=== PATIENT | female | born 1975 | race Caucasian/White ===

== ENCOUNTER 2016-11-18 22:30 | Emergency (ER) | payer OTHER ==
[~2016-11-18] VITALS: Ht 157.5 cm; Wt 104.1 kg
[~2016-11-18 22:30] MED LIST: RIZA10TA18 PO
[2016-11-18 22:34] VITALS: TEMP 37.2; Ht 157.5 cm; Wt 104.1 kg
[2016-11-18] MEDS ORDERED: OXYCODONE HCL IR 5 MG TAB (IMMEDIATE RELEASE) PO STA (22:38)
[2016-11-18] MEDS ORDERED: ASPI-390 PO (22:45)
--- NOTE | 2016-11-18 23:00 | DIAGNOSTIC IMAGING REPORT ---
LEFT SHOULDER 3 VIEWS CLINICAL HISTORY: Fall with left shoulder pain. FINDINGS: 3 portable views of left shoulder are obtained. No prior studies are available for comparison at the time of dictation. The skeletal structures are well mineralized. There is a nondistracted fracture of the left humeral head and neck. A small posteriorly distracted fragment is seen arising from the greater tuberosity. The glenohumeral and acromioclavicular joints appear maintained. Mild overlying soft tissue edema is noted. The visualized left lung parenchyma appears clear. IMPRESSION: Nondistracted fracture of the left humeral head and neck with a small distracted fragment. Electronically signed by: Ab Butler M.D. 11/18/2016 10:59 PM Dictated Date/Time: 11/18/2016 10:58 PM
[2016-11-18 23:04] VITALS: BP 191/114; PULSE 98; O2SAT 95
--- NOTE | 2016-11-18 23:10 | EMERGENCY ROOM VISIT NOTE ---
ED Visit Note First contact with patient: 22:34 CHIEF COMPLAINT: Shoulder pain HISTORY OF PRESENT ILLNESS: This 41-year-old patient presents to the emergency department with friends complaining of pain in the left shoulder falling on it just prior to arrival on the ice. There is limitation of motion of the arm because of the pain. The pain is moderate, constant and increases with motion of the hand and arm. The patient states the pain is throbbing and 6/10. The patient has taken nothing for relief of the pain. No previous significant previous shoulder disease or injury. No numbness or tingling. no neck no back pain. No chest pain or shortness of breath. No abdominal pain or nausea/ vomiting. No cough. REVIEW OF SYSTEMS: A 6 system review of systems was performed with positives and pertinent negatives in the HPI. ALLERGIES: none MEDICATIONS: Maxalt PMH: Migraines SOCIAL HISTORY: Drug use PHYSICAL EXAM: Vital Signs: Reviewed nurse's notes, vital signs hypertensive. GENERAL: Pleasant female who appears in pain, in no acute distress, but appears to be in pain, well-developed, well-nourished. MUSCULOSKELETAL: There is no deformity in the contour of the left shoulder and there are no lesly deformities noted. There is no sulcus sign. There is tenderness over the humeral head. The patient's range of motion is noted secondary to pain. Supraspinatus strength 4/5. There is no clavicle tenderness. No tenderness of the humerus, elbow, wrist, or hand. Business Services Manager strength 5/5. Radial pulse 2+. NECK: no tenderness to palpation over the cervical spine. HEART: Regular rate and rhythm without murmurs gallops or rubs. LUNGS: Clear to auscultation bilaterally without wheezes, rales or rhonchi. No accessory muscle use. No retractions. NEURO: The patient is alert and oriented to person, place, and time. Normal sensation to light and sharp touch. Capillary refill less than 2 seconds. EMERGENCY DEPARTMENT COURSE: I examined the patient. Patient was given an ice pack and OxyIR. An X-ray of the left shoulder was reviewed by myself and LEFT SHOULDER 3 VIEWS CLINICAL HISTORY: Fall with left shoulder pain. FINDINGS: 3 portable views of left shoulder are obtained. No prior studies are available for comparison at the time of dictation. The skeletal structures are well mineralized. There is a nondistracted fracture of the left humeral head and neck. A small posteriorly distracted fragment is seen arising from the greater tuberosity. The glenohumeral and acromioclavicular joints appear maintained. Mild overlying soft tissue edema is noted. The visualized left lung parenchyma appears clear. IMPRESSION: Nondistracted fracture of the left humeral head and neck with a small distracted fragment. Electronically signed by: Ab Butler M.D. Patient is placed in a sling and neurovascular status is rechecked after placement and is intact. She is advised follow-up with orthopedics for definitive care for her humeral head fracture. She is advised to remove her arm several times throughout the day and do range of motion exercises is not to develop a frozen shoulder. She is advised follow-up family medicine for her elevated blood pressure today this could be secondary to her pain. She is advised to return to the ER immediately for severe pain, numbness, tingling, worsening signs or symptoms or as needed. Patient was neurovascular and neurologically intact. No other injuries are noted. She is discharged home in stable condition with her friends. DIAGNOSIS: Left Humeral head fracture, elevated blood pressure DISCHARGE INSTRUCTIONS & TREATMENT: Your blood pressure is high today. Follow up with your family care Dr. for this. DO NOT drive, drink alcohol, operate machinery, or perform dangerous activities today. You were given medications in the ER that can affect your ability to safely function or operate a vehicle. Oxycodone (OxyIR) 5mg: Take 1-2 pills every four hours for breakthrough pain. Avoid alcohol, operating machinery or dangerous equipment, working on ladders or roofs, DRIVING, or situations where being under the influence may be dangerous. It is recommended to use an famy-ltj-oyyeoww stool softener such as Colace, 100mg twice daily while taking this medication to avoid constipation. Ibuprofen(Motrin, Advil) may be used for fever or pain. Use 600mg every six hours as needed. Take with food. Avoid using more than 2400mg in a 24 hour period. Do not use 2400mg per day for more than three consecutive days without physician direction. Prolonged inappropriate use can lead to stomach upset or ulcers. This medication can be taken if you need to drive, work, or perform activities which may be dangerous when taking narcotic pain medication. (AND/OR) Acetaminophen(Tylenol) may be used for fever or pain. Use 1000mg every six hours as needed. Avoid using more than 3000mg in a 24 hour period. This medication can be taken if you need to drive, work, or perform activities which may be dangerous when taking narcotic pain medication. Ice compresses for 20 minutes at a time four times daily for 2-3 days. Use the sling as instructed. Remove your arm from the sling 4-6 times a day and move all the joints around to keep them loose. Rest and elevate your injury. Continue current medications. Return to the ER immediately for any numbness, tingling, severe pain, extreme swelling in the extremity or as needed. Call Orthopedics tomorrow to arrange follow up for your injury. Current/Historical Medications Scheduled PRN [id number]-[id number] (Excedrin Migraine), 1 TAB PO BID PRN for Migraine Allergies Coded Allergies: No Known Allergies (Unverified , 05/02/14) Vital Signs Date Time Temp Pulse Resp B/P Pulse Ox O2 Delivery O2 Flow Rate FiO2 11/18/16 23:04 98 20 191/114 95 Room Air 11/18/16 22:34 37.2 109 16 211/121 95 Room Air Medications Administered Medications (Trade) Dose Ordered Sig/Tony Route Start Time Stop Time Status Last Admin Dose Admin Oxycodone HCl (Roxicodone Immediate Rel Tab) 5 mg NOW STAT PO 11/18/16 22:38 11/18/16 22:40 DC 11/18/16 22:44 5 MG Departure Information Referrals Montana Swartz M.D. (PCP) Patient Instructions My [facility]
[2016-11-18] MEDS ORDERED: OXYCODONE IR HOME PACK PO ONE (23:15)
[2016-11-18] MEDS ORDERED: OXYC1TAB3 PO (23:17)
== END 2016-11-18 23:31 | disposition home or self-care (01) ==
LOC: C.EDB 22:31 → C.EDA 23:31
DX: S42.202A Unspecified fracture of upper end of left humerus, initial encounter for closed fracture (principal); W19.XXXA Unspecified fall, initial encounter; R03.0 Elevated blood-pressure reading, without diagnosis of hypertension; Z79.899 Other long term (current) drug therapy

== ENCOUNTER → 2016-11-19 | Outpatient (CLI) | payer OTHER ==
[~2016-11-19] MED LIST changes: +ASPI-390 PO; +OXYC1TAB3 PO; -RIZA10TA18 PO
[2016-11-19 17:50] LABS: MEAN PLATELET VOLUME 9.7 fL (7.4-10.4); PLATELET COUNT 352 K/uL (130-400)
[2016-11-19 17:57] LABS: ALT/SGPT 21 U/L (12-78); AST/SGOT 10 U/L (15-37); BLOOD UREA NITROGEN 13 mg/dl (7-18); BUN/CREATININE RATIO 14.7 (10-20); CALCIUM 9.3 mg/dl (8.5-10.1); CARBON DIOXIDE 24 mmol/L (21-32); CHLORIDE 109 mmol/L (98-107); GLUCOSE 106 mg/dl (70-99); POTASSIUM 3.4 mmol/L (3.5-5.1); SODIUM 142 mmol/L (136-145)
[2016-11-19 18:21] LABS: ALB/GLOB RATIO 1.2 (0.9-2); ALKALINE PHOSPHATASE 65 U/L (45-117)
[2016-11-19 18:23] LABS: URINE APPEARANCE CLOUDY (CLEAR); URINE BILIRUBIN NEG (NEG); URINE COLOR YELLOW; URINE EPITHELIAL CELL AUTO >30 /lpf (0-5); URINE NITRITE NEG (NEG); UROBILINOGEN NEG (NEG); ZZUR CULT IF INDIC CLEAN CATCH YES
[2016-11-19 18:29] LABS: MANUAL MICROSCOPIC REQUIRED? NO; REVIEW REQ? YES
[2016-11-19 18:45] LABS: URINE MUCUS PRESENT (NONE PRSENT)
[2016-11-19 19:09] LABS: BASO % 0.2 %; BASO ABS # 0.02 K/uL (0-0.2); COMPLETE YES; EOS % 1.5 %; HEMATOCRIT 41.2 % (37-47); IG% 0.4 %; LYMPH % 16.9 %; LYMPH ABS # 1.97 K/uL (1.2-3.4); MEAN CELL VOLUME 89.8 fL (80-100); MEAN CORPUSCULAR HEMOGLOBIN 29.6 pg (25-34); MONO % 7.7 %; NEUT % 73.3 %; RED BLOOD COUNT 4.59 M/uL (4.2-5.4); WHITE BLOOD COUNT 11.68 K/uL (4.8-10.8)
== END | disposition home or self-care (01) ==
LOC: C.LABBFT 10:23
PROVIDERS: ATTEND Internal Medicine
DX: R03.0 Elevated blood-pressure reading, without diagnosis of hypertension (principal)

== ENCOUNTER → 2016-11-27 | Outpatient (CLI) | payer OTHER ==
[2016-11-27 12:46] LABS: BLOOD UREA NITROGEN 21 mg/dl (7-18); BUN/CREATININE RATIO 22.1 (10-20); CALCIUM 9.5 mg/dl (8.5-10.1); CARBON DIOXIDE 24 mmol/L (21-32); CHLORIDE 109 mmol/L (98-107); CREATININE 0.95 mg/dl (0.60-1.20); GLUCOSE 101 mg/dl (70-99); POTASSIUM 3.8 mmol/L (3.5-5.1); SODIUM 141 mmol/L (136-145)
[2016-11-27 12:51] LABS: BASO % 0.4 %; BASO ABS # 0.02 K/uL (0-0.2); COMPLETE YES; EOS % 2.3 %; HEMATOCRIT 40.2 % (37-47); IG% 0.4 %; LYMPH % 32.2 %; LYMPH ABS # 1.82 K/uL (1.2-3.4); MEAN CELL VOLUME 88.9 fL (80-100); MEAN CORPUSCULAR HEMOGLOBIN 29.4 pg (25-34); MEAN CORPUSCULAR HGB CONC 33.1 g/dl (32-36); MEAN PLATELET VOLUME 9.7 fL (7.4-10.4); NEUT % 56.7 %; PLATELET COUNT 401 K/uL (130-400); RED BLOOD COUNT 4.52 M/uL (4.2-5.4); WHITE BLOOD COUNT 5.65 K/uL (4.8-10.8)
== END | disposition home or self-care (01) ==
LOC: C.LABBFT 10:04
PROVIDERS: ATTEND Physician Assistant Medical
DX: I10 Essential (primary) hypertension (principal)

== ENCOUNTER → 2016-12-02 | Outpatient (CLI) | payer OTHER ==
[2016-12-02 13:14] LABS: CHOLESTEROL/HDL RATIO 3.8
[2016-12-02 13:37] LABS: ESTIMATED AVERAGE GLUCOSE 120 mg/dl; HA1C FLAG Normal (Normal)
== END | disposition home or self-care (01) ==
LOC: C.LABBFT 10:27
PROVIDERS: ATTEND Physician Assistant Medical
DX: I10 Essential (primary) hypertension (principal)

== ENCOUNTER → 2017-01-28 | Outpatient (CLI) | payer OTHER | END | disposition home or self-care (01) | LOC: C.PAPS 10:11 | PROVIDERS: ATTEND Obstetrics & Gynecology | DX: Z12.4 Encounter for screening for malignant neoplasm of cervix (principal); R87.612 Low grade squamous intraepithelial lesion on cytologic smear of cervix (LGSIL) ==